=== PATIENT | female | born 1960 | race Caucasian/White ===

== ENCOUNTER 2024-07-20 11:45 | Outpatient (CLI) | payer BC | END 2024-07-20 11:46 | disposition home or self-care (01) | LOC: PET 11:45 | PROVIDERS: ATTEND Internal Medicine Hematology & Oncology | DX: C34.11 Malignant neoplasm of upper lobe, right bronchus or lung (principal); J98.4 Other disorders of lung; R91.1 Solitary pulmonary nodule; J98.59 Other diseases of mediastinum, not elsewhere classified | CPT/HCPCS: 78815; A9552 ==

== ENCOUNTER 2024-08-09 11:00 | Outpatient (CLI) | payer BC | END 2024-08-09 11:01 | disposition home or self-care (01) | LOC: SCSMRI 11:00 | PROVIDERS: ATTEND Internal Medicine Hematology & Oncology | DX: C34.11 Malignant neoplasm of upper lobe, right bronchus or lung (principal); J34.89 Other specified disorders of nose and nasal sinuses | CPT/HCPCS: 70553; 76376 ==

== ENCOUNTER 2024-08-12 12:53 | Day surgery (SDC) | payer BC ==
[2024-08-12] MEDS ORDERED: Sodium Bicarbonate 2.5 MEQ/5 ML SDV ONE (14:10)
[2024-08-12] MEDS ORDERED: Lidocaine 1% w/Epinephrine 1:100K 20 ML VIAL ONE (14:10)
[2024-08-12 15:43] VITALS: BP 141/78; TEMP 97.9
== END 2024-08-12 15:00 | disposition home or self-care (01) ==
LOC: ULT 12:53
PROVIDERS: ATTEND Internal Medicine Hematology & Oncology
PROC: 07B13ZX Excision of Right Neck Lymphatic, Percutaneous Approach, Diagnostic (ICD-10-PCS; principal; 2024-08-12)
DX: C77.0 Secondary and unspecified malignant neoplasm of lymph nodes of head, face and neck (principal); C34.11 Malignant neoplasm of upper lobe, right bronchus or lung; I25.10 Atherosclerotic heart disease of native coronary artery without angina pectoris; E10.9 Type 1 diabetes mellitus without complications; F41.9 Anxiety disorder, unspecified; F51.04 Psychophysiologic insomnia; Z87.891 Personal history of nicotine dependence; Z85.3 Personal history of malignant neoplasm of breast; Z90.11 Acquired absence of right breast and nipple; Z90.710 Acquired absence of both cervix and uterus; Z88.5 Allergy status to narcotic agent; Z88.0 Allergy status to penicillin; Z79.82 Long term (current) use of aspirin; Z79.1 Long term (current) use of non-steroidal anti-inflammatories (NSAID); Z79.84 Long term (current) use of oral hypoglycemic drugs; Z79.899 Other long term (current) drug therapy
CPT/HCPCS: 38505; 76942; 88305; 88333; 88334; 88341; 88342